=== PATIENT | male | born 1975 | race Caucasian/White ===

== ENCOUNTER 2016-07-25 06:36 | Emergency (ER) | payer MEDICAID, OTHER ==
[~2016-07-25] VITALS: Ht 185.4 cm; Wt 89.8 kg
[2016-07-25] MEDS ORDERED: IBUPROFEN 600 MG TABLET PO ONE (07:15)
[2016-07-25] MEDS ORDERED: IBUPROFEN 600 MG TABLET ONE (07:28)
--- NOTE | 2016-07-25 07:56 | NUR ---
Patient discharged to home in stable conditon. Written and verbal after care instructions given. Patient verbalizes understanding of instructions.PT WALKS IN STEADY GAIT.
== END 2016-07-25 07:57 | disposition home or self-care (01) ==
LOC: ER 06:47
DX: M25.512 Pain in left shoulder (principal); J45.909 Unspecified asthma, uncomplicated
CPT/HCPCS: 71010; A4663